=== PATIENT | female | born 1950 | race Caucasian/White ===

== ENCOUNTER → 2017-11-24 11:38 | Outpatient (CLI) | payer MEDICARE, OTHER, SELFPAY | PROVIDERS: Family Provider Family Medicine; PCP Family Medicine; Visit Provider Internal Medicine Pulmonary Disease | DX: J40 Bronchitis, not specified as acute or chronic (principal) | CPT/HCPCS: 87070; 87077; 87186; 87205; 87631 ==

== ENCOUNTER → 2018-01-18 14:40 | Outpatient (CLI) | payer MEDICARE, OTHER, SELFPAY ==
--- NOTE | 2018-01-18 14:43 | CT_ITS ---
STUDY: CT CHEST WITHOUT CONTRAST REASON FOR EXAM: Female, 68 years old. COPD, shortness of breath, left lung removed 5 years ago due to recurrent collapse and cancer. Radiation and chemotherapy. RADIATION DOSAGE (If Supplied By Facility): CTDIvol = ( 10.10 ) mGy, DLP = ( 359.23 ) mGycm TECHNIQUE: Transaxial 1.25 and 2.5 mm imaging was performed without the administration of intravenous contrast material. Multiplanar coronal and sagittal images were reformatted. This examination is limited for the evaluation of gastrointestinal, solid organs and vascular structures due to the lack of intravenous contrast. Individualized dose optimization techniques were used for this CT. COMPARISON: CT chest 11/18/2016. 10/30/2015. 07/16/2015. FINDINGS: There is stable mild to moderate centrilobular emphysema involving the right lung with stable distortion of parenchyma in the posterior medial left base with scarring, and along areas of hyperinflation in the right middle lobe. There is previous left pneumonectomy with shift of heart, mediastinum and trachea to the left. There is no focal acute airspace disease. Resolution of previous groundglass opacification most recent exam. Stable trace left pleural effusion. Normal heart and pericardium. Normal mediastinum. Normal hilar regions. Normal unenhanced right pulmonary arteries. There is atherosclerotic calcification of the aortic arch with tortuosity and elongation of the aortic arch and descending thoracic aorta. PICC 3 there is generalized demineralization. Mild levoscoliosis of the upper thoracic spine. Prior vertebroplasty T5, T6 and T7 with mild retropulsion of inferior cortex of T5 and T7 and kyphosis. There are no destructive osseous lesions. Bilateral posterior diaphragmatic fat-containing hernia. Status postcholecystectomy. Small hiatal hernia. Normal bilateral adrenal glands. CT/Chest without Contrast IMPRESSION: Stable mild to moderate right centrilobular emphysema with scarring involving the posterior medial lung base and along the right middle lobe areas of hyperinflation. Interval resolution of previous groundglass opacification. No pulmonary edema, congestive heart failure or confluent pneumonia. Stable volume loss status post left pneumonectomy, atherosclerosis, osteoporosis, prior vertebroplasty, fat-containing posterior diaphragmatic hernia, stable left trace pleural effusion, kyphosis, osteoporosis, prior vertebral plasty. Electronically Signed: Pamela Mckinley MD at 2:39 EDT , Service support ,
== END ==
PROVIDERS: Family Provider Family Medicine; PCP Family Medicine; Visit Provider Internal Medicine Pulmonary Disease
DX: J44.9 Chronic obstructive pulmonary disease, unspecified (principal); Z85.118 Personal history of other malignant neoplasm of bronchus and lung
CPT/HCPCS: 71250

== ENCOUNTER → 2019-01-19 15:14 | Outpatient (CLI) | payer MEDICARE, OTHER, SELFPAY ==
--- NOTE | 2019-01-19 15:20 | CT_ITS ---
ACR Level 3 findings have been noted. An addendum which confirms receipt of the report will follow. STUDY: CT CHEST WITHOUT CONTRAST REASON FOR EXAM: Female, 69 years old. History of lung cancer follow-up History of chemoradiation RADIATION DOSAGE (If Supplied By Facility): CTDIvol = ( 13.02 ) mGy, DLP = ( 409.27 ) mGycm TECHNIQUE: Transaxial imaging was performed without the administration of intravenous contrast material. Multiplanar coronal and sagittal images were reformatted. Individualized dose optimization techniques were used for this CT. COMPARISON: January 18, 2018 CT scan chest FINDINGS: There is a persistent pattern of emphysematous change throughout the right upper lobe. Within the inferior aspect of the right middle lobe adjacent to a similar appearing emphysematous bled it was seen on prior study, there is a new focal spiculated nodule that measures 2.1 x 1.3 cm. This is adjacent to a small focus of consolidation/atelectasis within the right middle lobe that is similar to the prior study and atelectasis. Within the right lower lobe there are numerous smudgy peripheral nodular densities. These are new since the prior study. There is absence of the left lung and a deviated appearance of the heart into the left chest cavity. There is minimal scarring and atelectasis within the left lung with there are small remaining stable postoperative fluid collection. Normal heart and pericardium. Normal mediastinum. Normal hilar regions. Normal unenhanced pulmonary arteries. The thoracic aorta is adjacent to the left chest wall. Calcified and tortuous. There is been kyphoplasty T5-T7. There is postoperative change in the gallbladder fossa status post cholecystectomy. There is stable eventration or herniation of fat into the diaphragm. CT/Chest without Contrast IMPRESSION: New spiculated mass within the right middle lobe that is growing adjacent to the previously known emphysematous bleb. This measures 2.1 x 1.3 cm. This is suspicious for neoplasm. In addition there are multiple smudgy hazy nodular densities in the right lung for which atypical infiltrates/pneumonia could have this appearance however metastatic disease is of concern. Pulmonary edema in the over expanded right lung. Status post left pneumonectomy and deviation of the heart towards the left side of the chest. Status post cholecystectomy. Electronically Signed: Eusebia Colin MD at 22:29 EDT Tel , Service support ,
== END ==
PROVIDERS: Family Provider Family Medicine; PCP Family Medicine; Referring Provider Internal Medicine Pulmonary Disease; Visit Provider Internal Medicine Pulmonary Disease
DX: J44.9 Chronic obstructive pulmonary disease, unspecified (principal); Z85.118 Personal history of other malignant neoplasm of bronchus and lung
CPT/HCPCS: 71250

== ENCOUNTER → 2019-02-05 | Outpatient (CLI) | payer MEDICARE, OTHER, SELFPAY ==
--- NOTE | 2019-02-05 10:00 | PET_ITS ---
EXAMINATION: FDG PET CT INDICATIONS: A 69-year-old female with history of carcinoma of the lung presenting for restaging examination. COMPARISON EXAMINATION: CT of the chest report dated 01/19/19. INDEX LESION SIZE SUV INTERPRETATION Right lower anterior lung field, right middle lobe 21.1 mm (frame 170) 1.8 Quantitative criteria for viable neoplasm are not fulfilled, sequential radiologic investigation recommended TECHNIQUE: Following the intravenous administration of 10.37 mCi of F-18 deoxyglucose via the right antecubital fossa, multiplanar image acquisitions of the neck, chest, abdomen and pelvis to level of mid thigh, obtained at one hour post radiopharmaceutical administration contemporaneously interpreted with the current CT of the neck, chest, abdomen and pelvis to level of mid thigh, dated 02/05/[address] of the chest report dated 01/19/19 reveal: SERUM GLUCOSE LEVEL: 76 mg/dl. HEIGHT: 60 inches. WEIGHT: 170 lbs. FINDINGS: 1. Focal increased glucose metabolism is defined in the right lower anterior hemithorax pulmonary parenchyma, right middle lobe generating a calculated maximum standard uptake value of 1.8. The maximal axial diameter of the corresponding parenchymal density on review of CT of the chest dated 02/05/19 is 21.1 mm. 2. Normal physiologic distribution of the radiopharmaceutical is apparent in the hepatic (3.3) and splenic parenchyma, both renal units, bladder and visualized intestinal tract. There is uniform distribution of the radiopharmaceutical concentration defined in the visualized cerebellar hemispheres and cerebral cortical structures.? Diffuse intestinal tract activity is noted throughout all four quadrants of the abdominal-pelvic retroperitoneum, mesentery consistent with normal physiologic distribution of the radiopharmaceutical, most accentuated in the bilateral lower pelvic mesentery contiguous to visualized intestinal tract in the distribution of both the proximal ascending and sigmoid colon generating a calculated maximum standard uptake value of 6.0. Pertinent CT findings are as follows. CHEST: The left lung is surgically absent. Low density fluid is defined in the left hemithorax. There is a shift of the mediastinal structures to the left of the midline. Atherosclerotic calcification is defined in the thoracic aorta without evidence of dilatation, aneurysm formation. Coronary arterial calcification is observed. Emphysematous change is noted in the right upper lung field. The parenchymal density noted in the right lower anterior lung-right middle lobe demonstrates mild enhanced FDG uptake, as previously described. There are no additional parenchymal densities-nodules noted in the right and left hemithorax demonstrating discernible, quantitatively significant enhanced FDG uptake. ABDOMEN AND PELVIS: The gallbladder is surgically absent. Atherosclerotic calcification is defined in the abdominal aorta without evidence of dilatation, aneurysm formation. Pelvic arterial calcification is observed. There appears to be calcification within the pancreatic head without evidence of quantitatively significant enhanced FDG uptake. Retained oral contrast material is noted. Extensive colonic diverticulosis is noted in the distribution of the sigmoid colon. Bilateral subcentimeter inguinal soft tissue densities are non-glucose avid. SKELETAL: Kyphoplasty is demonstrated at the level of the fifth-seventh thoracic vertebrae. PET/PET/CT Tumor Base -Thigh Subs IMPRESSION: 1. Increased glucose metabolism currently defined in the right lower anterior lung field, right middle lobe does not fulfill quantitative criteria for viable neoplasm. (Demond et al, Annals of Internal Medicine, 138:724, 2003). 2. Metabolic and/or anatomic stability may be ensured in the right hemithorax pulmonary parenchymal abnormality with repeat FDG PET study and/or CT of the thorax in three months. (Xiu, Journal of Nuclear Medicine 45:88, P2004. Sherry, Seminars in Thoracic and Cardiovascular Surgery 14:292, 2002). 3. Facilitated radiopharmaceutical concentration noted in the lower pelvic mesentery contiguous to intestinal tract is most consistent with physiologic distribution of the radiopharmaceutical. If intraluminal soft tissue mass formation is a diagnostic consideration, correlation with CT of the abdomen and pelvis with oral and intravenous contrast is recommended. (Fan et al, Journal of Nuclear Medicine, 30:S276, 2003). Electronic Signature Lazarus Foster D.O. Electronically Signed: Lazarus Foster DO at 23:30 EDT Tel , Service support ,
== END | disposition home or self-care (01) ==
PROVIDERS: Family Provider Family Medicine; PCP Family Medicine; Referring Provider Internal Medicine Pulmonary Disease; Visit Provider Internal Medicine Pulmonary Disease
DX: C34.12 Malignant neoplasm of upper lobe, left bronchus or lung (principal)
CPT/HCPCS: 78815; A9552

== ENCOUNTER → 2020-01-15 | Outpatient (CLI) | payer MEDICARE, OTHER, SELFPAY ==
--- NOTE | 2020-01-15 15:10 | PET_ITS ---
EXAMINATION: FDG PET-CT INDICATIONS: A 69-year-old female with history of carcinoma of the lung presenting for restaging examination. COMPARISON EXAMINATION: CTA of the chest report dated 12/04/2019, FDG PET study dated 02/05/2019 INDEX LESION SIZE SUV INTERPRETATION PERSISTENT: right lower anterior lung-right middle lobe 34.3-mm (frame 149) comp. to 21.1-mm (02/05/19) 5.8 comp. to 1.8 (02/05/19) Fulfills quantitative criteria for viable neoplasm, histopathologic analysis recommended TECHNIQUE: Following the intravenous administration of 15.7 mCi of F-18 deoxyglucose via the left antecubital fossa, multiplanar image acquisitions of the neck, chest, abdomen and pelvis to level of mid thigh, obtained at one hour post radiopharmaceutical administration contemporaneously interpreted with the current CT of the neck, chest, abdomen and pelvis, to level of mid thigh, dated 01/15/2020 via coregistration and CTA of the chest report dated 12/04/2019, FDG PET study dated 02/05/2019 reveals: BLOOD GLUCOSE LEVEL:?? 110 mg/dl?HEIGHT:?60 inches?WEIGHT: 170 lbs. FINDINGS: 1. Redefined increased glucose metabolism is manifest in the right lower anteromedial lung which appears to reside within the medial segment of the right middle lobe. The calculated maximal standard uptake value is 5.8, compared to 1.8 defined on the FDG PET study dated 02/05/2019. The maximal axial diameter of the corresponding parenchymal density on review of CT of the chest dated 01/15/2020 is 34.3-mm (AP). 2. Normal physiologic distribution of the radiopharmaceutical is apparent in the hepatic (2.8/3.3) and splenic parenchyma, both renal units, bladder and visualized intestinal tract. The visualized portion of the cerebral cortex, as well as cerebellar hemispheres demonstrate symmetric and preserved glucose metabolism. Diffuse radiopharmaceutical concentration is noted in all four quadrants of the abdomen and pelvis. Prominent radiopharmaceutical concentration is observed in the left ventricular myocardium commensurate with the [place]. Asymmetric increased tracer uptake is noted in the region of the second cervical vertebra to the right of the midline contiguous to facet joint commensurate with degenerative arthritis. Pertinent CT findings are as follows: CHEST: The left lung is surgically absent. A shift of the mediastinal structures to the left of the midline is defined. There is atherosclerotic calcification defined in the thoracic aorta without evidence of dilatation-aneurysm formation. Coronary arterial calcification is observed. Subcentimeter bilateral axillary soft tissue densities are ametabolic. Emphysematous changes are noted in the right apical lung field. ABDOMEN AND PELVIS: The gallbladder is surgically absent. There is atherosclerotic calcification defined in the abdominal aorta without evidence of dilatation-aneurysm formation. Pelvic arterial calcification is observed. Colonic diverticulosis is noted without evidence of diverticulitis. Right-left inguinal soft tissue densities with fatty hilus are ametabolic. Beam hardening artifact is noted in the lower pelvic CT acquisition attributed to a visualized left hip arthroplasty. SKELETAL: Vertebroplasty is noted in the fifth-seventh and twelfth thoracic vertebra. There is evidence of an apparent compression deformity involving the first lumbar vertebra. Degenerative changes are noted in the cervical, thoracic and lumbar spine. PET/PET/CT Tumor Base -Thigh Init IMPRESSION: 1. ABNORMAL EXAMINATION INDICATIVE OF MALIGNANT VIABLE NEOPLASM. 2. Increased radiopharmaceutical concentration redemonstrated in the right lower anteromedial lung-right middle lobe fulfills quantitative criteria for viable neoplasm. Histopathologic analysis is recommended. (Lagos et al, Annals of Internal Medicine, 138:724, 2003). 3. Overall, compared to the prior FDG PET study dated 02/05/2019, there is apparent current expression of defined viable neoplastic disease within the context of the right lower anteromedial lung-right middle lobe warranting histopathologic investigation. Electronic Signature Lazarus Foster D.O. Accurate Quantification of SUVs for this report are calculated using the exclusive [employer]. Electronically Signed: Lazarus Foster DO at 23:55 EDT Tel , Service support ,
== END | disposition home or self-care (01) ==
PROVIDERS: PCP Family Medicine; Referring Provider Internal Medicine Pulmonary Disease; Visit Provider Internal Medicine Pulmonary Disease
DX: R91.1 Solitary pulmonary nodule (principal)
CPT/HCPCS: 78815; A9552